=== PATIENT | male | born 1990 | race Caucasian/White ===

== ENCOUNTER 2024-05-25 19:58 | Emergency (ER) | payer MEDICAID, SELFPAY ==
--- NOTE | 2024-05-25 19:45 | RT.EKG_ITS ---
APPROVED REPORT Exam: Resting ECG Reason for Exam: Tachycardia Patient Location: E HR:115 bpm ECG Measurements Heart Rate 115 AXIS NV 136 P 81 QRSd 115 QRS 77 QT 324 T 62 QTc 448 Conclusion Sinus tachycardia...rate> 99 Incomplete right bundle branch block...QRSd >112, terminal axis(90,270)
[2024-05-25 19:57] VITALS: BP 164/126; PULSE 130; RESP 20; O2SAT 98
[2024-05-25 20:01] VITALS: PULSE 132; RESP 12
[2024-05-25 20:05] VITALS: BP 172/98; PULSE 122; PULSE 128; RESP 18; O2SAT 99
[2024-05-25 20:10] VITALS: PULSE 129; RESP 13; O2SAT 99
[2024-05-25 20:15] VITALS: BP 174/117; PULSE 116; PULSE 126; RESP 14; O2SAT 99
[2024-05-25 20:55] VITALS: BP 159/99; PULSE 120; RESP 18; TEMP 36.6; O2SAT 100
--- NOTE | 2024-05-25 23:17 | ED.GENADUL_ITS ---
Discharge Plan Disposition Patient Disposition: Against Medical Advice Discharge Details Clinical Impression: Insomnia, Tiredness Primary Care Provider: None,None ED Provider: Kamilah Reddy Home Meds and New Rx's Prescriptions: Continued ibuprofen 800 mg tablet 800 mg PO TID PRN polyethylene glycol 3350 527 GM powder 1 cap PO HS PRN PRNQty: 1 0RF Discharge Instructions Additional Instructions: You are leaving against medical recommendation Please stop using the melatonin as you are taking much more than the recommended dosage, please refer to enclosed information Try taking Unasom, which is [id number] and sees if this might help you sleep Follow-up with [address] and they can help you acquire insurance so you might see a primary care physician You have declined blood work today, I do recommend you have an assessment, I am placing you on the list to establish with a primary care physician Please be reevaluated at your earliest ability HPI General Date/Time Provider Initiated Documentation: 05/25/24 20:24 . HPI Narrative: This 34-year-old male who suffers from insomnia states he took approximately 150 mg of melatonin this morning and smoked marijuana. He states he tried to sleep and thinks he may have slept for an hour to then went back to work this afternoon. He got out of work this morning at 3 AM and had marijuana around 7 and the melatonin around 6. Patient states every other day he takes 100+ milligrams of melatonin to help him sleep. He is not had a primary care physician for an extended period of time per patient. He does not endorse drinking any alcohol or using any illicit drugs. He states that today he became very tired when he was driving and pulled over to the side of the road to take a nap. States the next thing he remembers they were rubbing his chest and talking to him. Patient states he feels quite anxious and does not like being in healthcare facilities. He also is anxious because he does not have any health insurance. He denies chest pain, shortness of breath, dizziness or weakness. He states aside from being tired he feels like he is at his baseline. Related Data Home Medications ?Medication ?Instructions ?Recorded ?Confirmed polyethylene glycol 3350 17 1 cap PO HS PRN PRN ##1 06/20/16 gram/dose oral powder ibuprofen 800 mg tablet 800 mg PO TID PRN 07/28/23 Previous Rx's ?Medication ?Instructions ?Recorded polyethylene glycol 3350 17 1 cap PO HS PRN PRN ##1 06/20/16 gram/dose oral powder Allergies Allergy/AdvReac Type Severity Reaction Status Date / Time No Known Allergies Allergy Unverified 06/20/16 18:11 General Stated Complaint: Arrhythmia CLAY: 3 Exam Narrative Exam Narrative: 34-year-old male, alert and oriented, appears anxious and restless. Lungs clear to auscultation, cardiac rate sinus tachycardia, no calf swelling or tenderness, alert and oriented x 4, no abdominal tenderness, cranial nerves II through XII intact, ambulatory with steady gait, no visible sign of trauma Course Vital Signs Vital signs: Vital Signs Pulse 130 H 05/25/24 19:57 Respiratory Rate 20 05/25/24 19:57 Blood Pressure 164/126 H 05/25/24 19:57 Pulse Oximetry 98 05/25/24 19:57 Temperature 36.6 C 05/25/24 20:55 Pulse 120 H 05/25/24 20:55 Pulse 116 H 05/25/24 20:15 Respiratory Rate 18 05/25/24 20:55 Respiratory Effort Normal 05/25/24 20:00 Blood Pressure 159/99 H 05/25/24 20:55 Blood Pressure Mean 136 05/25/24 20:15 Blood Pressure Position Sitting 05/25/24 19:57 Pulse Oximetry 100 05/25/24 20:55 Oxygen Delivery Method Room Air 05/25/24 19:57 Oxygen Flow Rate 0 05/25/24 19:57 Pain Level 0 05/25/24 19:57 Medical Decision Making 34-year-old male endorsing significant tiredness, with has difficulties sleeping for years per patient. Does not currently have primary care physician or medical insurance and is very anxious being in healthcare facilities. I did relay to the patient had like to order some baseline labs and a chest x-ray, patient has adamantly refused any testing at this time. He states that he simply cannot handle all the bills from being in the hospital and does not want to be here. He states that he will follow-up with [facility] tomorrow to require health insurance and will be reassessed at that time. He is aware that he is at risk for further deterioration and even and that the recommendation is to perform a medical exam. Patient is fully alert, oriented, and of decisional capacity and is competent to make the decision to leave AGAINST MEDICAL ADVICE. He is aware that he is leaving AGAINST MEDICAL ADVICE. He was given documentation regarding melatonin and melatonin overdose is encouraged to review that. Patient is discharged alert, oriented, ambulatory with steady gait and encouraged to follow-up closely in the outpatient setting Quality:SDOH Health Related Social Needs: No Data to Display PFSH All Active Problems (Updated 05/25/24 @ 20:26 by ROSAS Weiss) Tiredness (Acute) Insomnia (Acute) Acute lumbar myofascial strain (Acute) Social History Smoking/Tobacco Use Status: Current every day Smoking risk assessment performed?: Yes Drug use: Occasionally Do you feel safe in your relationship?: Yes
== END 2024-05-25 20:51 | disposition left against medical advice (07) ==
LOC: ER 20:41
PROVIDERS: Emergency Provider Physician Assistant
DX: G47.00 Insomnia, unspecified (principal); R53.83 Other fatigue; F17.200 Nicotine dependence, unspecified, uncomplicated; Z53.29 Procedure and treatment not carried out because of patient's decision for other reasons
CPT/HCPCS: 93005; 99282; 93010